=== PATIENT | female | born 1990 | race Caucasian/White ===

== ENCOUNTER 2017-01-13 08:28 | Emergency (ER) | payer MEDICAID, OTHER ==
[~2017-01-13] VITALS: Ht 157.5 cm; Wt 77.0 kg
[2017-01-13 08:31] VITALS: Ht 157.5 cm; Wt 77.0 kg
[2017-01-13] MEDS ORDERED: TRIA15CR55 TOP (09:01)
[2017-01-13] MEDS ORDERED: CLOT30CR24 TOP (09:02)
--- NOTE | 2017-01-13 12:22 | ERD ---
ER Documentation Chief Complaint Date/Time DATE: 01/13/17 TIME: 12:19 Chief Complaint rash to wrist and hands HPI Patient is an otherwise healthy 26-year-old female presenting to the emergency department with complaints of rash to her anterior right wrist as well as her medial left forearm. Symptoms are constant. Associated symptoms include pruritus. Notes dryness, scaling, and flaking. She has never had these symptoms in the past. No fevers, chills, or other symptoms reported at this time. There is scaling and flaking noted. ROS All systems reviewed and are negative except as per history of present illness. Medications Home Meds Active Scripts Clotrimazole* (Clotrimazole* AF) 1% - 30 Gm Cream.gm., 1 APPLIC TOP BID for 7 Days, #1 TUB Prov:BIBIANA GARCIA PA-C 01/13/17 Triamcinolone Acetonide (Triamcinolone Acetonide) 0.1% - 15 Gm Cream.gm., 1 APPLIC TOP BID, #1 TUB Prov:BIBIANA GARCIA PA-C 01/13/17 Allergies Allergies: Coded Allergies: No Known Allergy (Verified Allergy, Unknown, 12/30/08) PMhx/Soc Medical and Surgical Hx: pt denies Medical Hx, pt denies Surgical Hx Hx Alcohol Use: No Hx Substance Use: No Hx Tobacco Use: No Smoking Status: Never smoker Physical Exam Vitals Vital Signs Date Time Temp Pulse Resp B/P Pulse Ox O2 Delivery O2 Flow Rate FiO2 01/13/17 08:31 98.0 80 18 118/76 98 Physical Exam Const: Nontoxic, well-appearing female in no acute distress. Head: Atraumatic Eyes: Normal Conjunctiva ENT: Normal External Ears, Nose and Mouth. Neck: Full range of motion..~ No meningismus. Skin: There is an eczematous rash noted to the anterior right wrist with some scaling and flaking noted. Is an annular rash with central clearing noted to the medial left forearm. No significant erythema, warmth, discharge noted. Back: No midline or flank tenderness Ext: No cyanosis, or edema Neur: Awake and alert Psych: Normal Mood and Affect Procedures/MDM 26-year-old female presents to the emergency department with complaints of rash. History and physical examination is consistent with eczema versus tinea corporis versus generalized dry skin versus contact dermatitis. No life- threatening pathology was identified. The patient was stable for discharge with a prescription for clotrimazole and triamcinolone. She agreed with the discharge plan and diagnosis. Close follow-up with the primary care physician was advised. The patient was advised to return immediately to the department for new or worsening symptoms. Low suspicion for cellulitis, sepsis, or other emergent conditions. Departure Diagnosis: Primary Impression: Rash and other nonspecific skin eruption Condition: Fair Patient Instructions: Self-Care for Skin Rashes Referrals: [facility] () Usted se garcia hecho un examen mdico de control que le indica que no est en annie condicin que requiera tratamiento urgente en el Departamento de Emergencia. Un estudio ms profundo y el tratamiento de forrest condicin pueden esperar sin ningn riesgo hasta que usted sea atendida/o en el consultorio de forrest mdico o annie cl jesus. Es responsabilidad suya arreglar annie tito para el seguimiento del darling. MANEJO DE CONDICIONES NO URGENTES EN EL FUTURO 1) Si usted tiene un mdico de atencin primaria: Usted debera llamar a forrest mdico de atencin primaria antes de venir al departamento de emergencia. Despus de las horas de consultorio, forrest doctor o forrest asociado/a est disponible por telfono. El mdico o enfermero de emilie en el servicio telefnico puede asesorarle por guadalupe medio para atender el problema, o darling contrario se puede programar annie tito. 2) Si usted no tiene un mdico de atencin primaria: Llame al mdico o clnica de referencia que aparece abajo sujata las horas de consultorio para hacer annie tito para que le vean. CLINICAS: [facility] [phone] [id number] [facility] [phone] [facility] [phone] [facility] [phone] [place] [id number] [phone] [facility]. [phone] [address] Additional Instructions: No mas mejor en 2-3 dickinson, regresar. Mas peor en 24 horas, regresear rapidamente. Ir a doctor primario in 5-7 dickinson. Usar instrucciones cuando cecilia medicamento. BIBIANA GARCIA PA-C Jan 13, 2017 12:22
== END 2017-01-13 09:34 | disposition home or self-care (01) ==
LOC: FTE 08:28
DX: R21 Rash and other nonspecific skin eruption (principal)
CPT/HCPCS: 99283